=== PATIENT | female | born 1945 | race Caucasian/White ===

== ENCOUNTER 2017-07-08 18:58 | Inpatient (IN) | payer OTHER ==
[2017-07-08] MEDS: SOD CHLORIDE 0.9% 500 ML IV (23:37)
[2017-07-08 23:49] LABS: ABNORMAL IP MESSAGE 1; HEMATOCRIT 42.5 % (37.0-47.0); MEAN CORPUSCULAR HEMOGLOBIN 28.5 pg (29.0-33.0); MEAN CORPUSCULAR HGB CONC 32.9 g/dl (32.0-37.0); MEAN CORPUSCULAR VOLUME 86.4 fl (82.0-101.0); MEAN PLATELET VOLUME 10.7 fl (7.4-10.4); PLATELET COUNT 234 10^3/UL (140-415); RED BLOOD COUNT 4.92 10^6/ul (4.20-5.40); RED CELL DISTRIBUTION WIDTH 12.6 % (11.5-14.5)
[2017-07-08 23:56] LABS: ADD MAN DIFF? YES; POSITIVE DIFF @See below
[2017-07-09 00:04] LABS: HEMOGLOBIN A1C 5.1 % (0-5.9)
[2017-07-09 00:06] LABS: OPIATES Negative (NEGATIVE)
[2017-07-09 00:08] LABS: ALANINE AMINOTRANSFERASE 38 IU/L (13-69); ALBUMIN 4.8 g/dl (3.3-4.9); ALBUMIN/GLOBULIN RATIO 1.33; ALKALINE PHOSPHATASE 135 IU/L (42-121); ANION GAP 15 (8-16); ASPARTATE AMINO TRANSFERASE 31 IU/L (15-46); BILIRUBIN,INDIRECT 0.3 mg/dl (0-1.1); BILIRUBIN,TOTAL 0.3 mg/dl (0.2-1.3); BLOOD UREA NITROGEN 12 mg/dl (7-20); CALCIUM 9.6 mg/dl (8.4-10.2); CARBON DIOXIDE 25 mmol/L (21-31); CHLORIDE 102 mmol/L (97-110); CHOL/HDL RATIO 4.1 RATIO; CHOLESTEROL 215 mg/dl (100-200); CREATININE 0.59 mg/dl (0.44-1.00); GLUCOSE 126 mg/dl (70-220); HDL CHOLESTEROL 52 mg/dl (33-92); LDL CHOLESTEROL,CALCULATED 135 mg/dl; POTASSIUM 3.8 mmol/L (3.5-5.1); SODIUM 138 mmol/L (135-144); TOTAL PROTEIN 8.4 g/dl (6.1-8.1); TRIGLYCERIDES 138 mg/dl (0-149)
[2017-07-09 00:09] LABS: AMPHETAMINE/METHAMPHETAMINE Negative (NEGATIVE); BARBITURATES Negative (NEGATIVE); BENZODIAZEPINES Negative (NEGATIVE); CANNABINOIDS Negative (NEGATIVE); COCAINE Negative (NEGATIVE)
[2017-07-09 00:10] LABS: INR 1.01; PARTIAL THROMBOPLASTIN TIME 27.5 Sec (25.0-35.0); PROTIME 13.4 Sec (11.9-14.9)
[2017-07-09 00:14] LABS: ADD UMIC YES; UR ASCORBIC ACID NEGATIVE (NEGATIVE); UR BACTERIA FEW /HPF (NONE SEEN); UR BILIRUBIN (Dip) NEGATIVE (NEGATIVE); UR BLOOD (Dip) 1+ mg/dL (NEGATIVE); UR CLARITY SLIGHTLY CLOUDY (CLEAR); UR COLOR YELLOW (YELLOW); UR GLUCOSE (Dip) NEGATIVE (NEGATIVE); UR KETONES (Dip) 1+ mg/dL (NEGATIVE); UR LEUKOCYTE ESTERASE (Dip) 3+ Leu/ul (NEGATIVE); UR MUCUS FEW /HPF (NONE SEEN); UR NITRITE (Dip) NEGATIVE (NEGATIVE); UR RBC 10 /HPF (0-5); UR SPECIFIC GRAVITY (Dip) 1.011 (1.003-1.030); UR SQUAMOUS EPITHELIAL CELL FEW /HPF (FEW); UR TOTAL PROTEIN (Dip) NEGATIVE (NEGATIVE); UR UROBILINOGEN (Dip) NEGATIVE (NEGATIVE); UR WBC 21 /HPF (0-5)
[2017-07-09 00:20] LABS: TROPONIN-I < 0.012 ng/ml (0.00-0.12)
[2017-07-09] MEDS: morphine 2 MG INJ IV ×3 (00:25→17:17)
[2017-07-09] MEDS: ONDANSETRON 4 MG INJ IV ×3 (00:25→06:05)
[2017-07-09] MEDS: morphine 4 MG/ML VIAL IV ×2 (02:29→06:05)
[2017-07-09 04:04] LABS: ANISOCYTOSIS 1+ (0-0); BASOPHIL #M 0.2 10^3/ul (0.0-0.0); BASOPHILS % (M) 1 % (0-2); GIANT THROMBO% (M) 1 % (0-0); LYMPHOCYTES #M 11.5 10^3/ul (0.8-2.9); LYMPHOCYTES % (M) 55 % (15-51); METAMYELOCYTES #M 0.2 10^3/ul (0.0-0.0); METAMYELOCYTES %M 1 % (0-0); MICROCYTOSIS 1+ (0-0); MONOCYTE #M 0.6 10^3/ul (0.3-0.9); MONOCYTES % (M) 3 % (0-11); MYELOCYTES #M 0.4 10^3/ul (0.0-0.0); MYELOCYTES % (M) 2 % (0-0); PLATELET ESTIMATE NORMAL; REACTIVE LYMPHOCYTES #M 0.4 10^3/ul (0.0-0.0); REACTIVE LYMPHOCYTES% (M) 2 % (0-0); SEGMENTED NEUTROPHILS (M) % 35 % (39-77); SMUDGE%M 28 % (0-0)
[2017-07-09] MEDS: VANCOMYCIN 1 GM (PMX) 250 ML IVPB (04:47)
[2017-07-09] MEDS: SODIUM CHLORIDE 0.9% 1L BAG IV* (04:47)
[2017-07-09] MEDS: CEFEPIME 2GM/50 ML (PMX) 50 ML IVPB (04:48)
[2017-07-09] MEDS ORDERED: ONDANSETRON 4 MG INJ IV (06:30)
[2017-07-09] MEDS ORDERED: NACL 0.9% 3 ML SYG IV (06:30)
[2017-07-09] MEDS ORDERED: ALBUTEROL/IPRATROPIUM (NEB) 3 ML AMP HHN (06:30)
[2017-07-09] MEDS: ACETAMINOPHEN 325 MG TAB PO (07:57)
[2017-07-09] MEDS ORDERED: VANCOMYCIN IV PER PHARMACY XX (09:00)
[2017-07-09] MEDS ORDERED: hydrALAzine 20 MG INJ IV (09:30)
[2017-07-09] MEDS: CEFEPIME 1GM/50 ML (PMX) 50 ML IVPB ×2 (09:46→20:32)
[2017-07-09] MEDS: SOD CHLORIDE 0.9% 1,000 ML IV (09:47)
[2017-07-09] MEDS: ENOXAPARIN 40 MG/0.4 ML SYG SC (09:47)
[2017-07-09 11:35] LABS: LACTIC ACID 0.8 mmol/L (0.5-2.0)
[2017-07-09 15:11] LABS: URIC ACID 2.2 mg/dl (3.1-7.9)
[2017-07-09] MEDS: VANCOMYCIN 500MG/NS (PMX) 100 ML IVPB (17:09)
[2017-07-09] MEDS: GABAPENTIN 100 MG CAP PO (20:32)
[2017-07-10] MEDS: morphine 2 MG INJ IV ×2 (00:57→06:38)
[2017-07-10] MEDS ORDERED: VITAMIN A & D 5 GM OINT PACKET TOP (02:30)
[2017-07-10] MEDS: VANCOMYCIN 500MG/NS (PMX) 100 ML IVPB (05:08)
[2017-07-10] MEDS: SOD CHLORIDE 0.9% 1,000 ML IV ×3 (05:08→21:09)
[2017-07-10 06:04] LABS: ABNORMAL IP MESSAGE 1; HEMATOCRIT 38.6 % (37.0-47.0); HEMOGLOBIN 12.7 g/dl (12.0-16.0); MEAN CORPUSCULAR HEMOGLOBIN 28.7 pg (29.0-33.0); MEAN CORPUSCULAR HGB CONC 32.9 g/dl (32.0-37.0); MEAN CORPUSCULAR VOLUME 87.1 fl (82.0-101.0); MEAN PLATELET VOLUME 10.7 fl (7.4-10.4); PLATELET COUNT 203 10^3/UL (140-415); RED BLOOD COUNT 4.43 10^6/ul (4.20-5.40); RED CELL DISTRIBUTION WIDTH 12.5 % (11.5-14.5)
[2017-07-10 06:04] LABS: WHITE BLOOD COUNT 16.5 10^3/ul (4.8-10.8)
[2017-07-10 06:07] LABS: ADD MAN DIFF? YES; POSITIVE DIFF @See below
[2017-07-10 06:33] LABS: ALANINE AMINOTRANSFERASE 122 IU/L (13-69); ALBUMIN 3.9 g/dl (3.3-4.9); ALBUMIN/GLOBULIN RATIO 1.25; ALKALINE PHOSPHATASE 157 IU/L (42-121); ANION GAP 15 (8-16); ASPARTATE AMINO TRANSFERASE 101 IU/L (15-46); BILIRUBIN,INDIRECT 0.4 mg/dl (0-1.1); BILIRUBIN,TOTAL 0.4 mg/dl (0.2-1.3); BLOOD UREA NITROGEN 10 mg/dl (7-20); CARBON DIOXIDE 29 mmol/L (21-31); CHLORIDE 103 mmol/L (97-110); CREATININE 0.52 mg/dl (0.44-1.00); GLUCOSE 89 mg/dl (70-220); PHOSPHORUS 3.6 mg/dl (2.5-4.9); POTASSIUM 3.5 mmol/L (3.5-5.1); SODIUM 143 mmol/L (135-144)
[2017-07-10 07:59] LABS: ANISOCYTOSIS 2+ (0-0); LYMPHOCYTES #M 10.7 10^3/ul (0.8-2.9); LYMPHOCYTES % (M) 65 % (15-51); METAMYELOCYTES #M 0.1 10^3/ul (0.0-0.0); METAMYELOCYTES %M 1 % (0-0); MICROCYTOSIS 2+ (0-0); MONOCYTE #M 0.3 10^3/ul (0.3-0.9); MONOCYTES % (M) 2 % (0-11); MYELOCYTES #M 0.1 10^3/ul (0.0-0.0); MYELOCYTES % (M) 1 % (0-0); PLATELET ESTIMATE NORMAL; POLYCHROMASIA 1+ (0-0); SEGMENTED NEUTROPHILS (M) % 31 % (39-77); SMUDGE%M 5 % (0-0)
[2017-07-10] MEDS: CEFEPIME 1GM/50 ML (PMX) 50 ML IVPB ×2 (08:53→21:08)
[2017-07-10] MEDS: GABAPENTIN 100 MG CAP PO ×3 (08:54→21:08)
[2017-07-10] MEDS: ENOXAPARIN 40 MG/0.4 ML SYG SC (09:00)
[2017-07-10] MEDS: INFLUENZA VIRUS VACCINE 0.5 ML SYG IM* (12:42)
[2017-07-10] MEDS ORDERED: morphine LIQ (10 MG/5 ML) CUP PO (17:30)
[2017-07-10] MEDS: ACETAMINOPHEN 325 MG TAB PO (18:46)
[2017-07-11] MEDS: ACETAMINOPHEN 325 MG TAB PO ×3 (00:28→20:03)
[2017-07-11 06:14] LABS: ABNORMAL IP MESSAGE 1; HEMATOCRIT 36.9 % (37.0-47.0); HEMOGLOBIN 12.2 g/dl (12.0-16.0); MEAN CORPUSCULAR HEMOGLOBIN 28.6 pg (29.0-33.0); MEAN CORPUSCULAR HGB CONC 33.1 g/dl (32.0-37.0); MEAN CORPUSCULAR VOLUME 86.6 fl (82.0-101.0); MEAN PLATELET VOLUME 10.4 fl (7.4-10.4); PLATELET COUNT 188 10^3/UL (140-415); RED BLOOD COUNT 4.26 10^6/ul (4.20-5.40); RED CELL DISTRIBUTION WIDTH 12.8 % (11.5-14.5)
[2017-07-11 06:14] LABS: WHITE BLOOD COUNT 14.4 10^3/ul (4.8-10.8)
[2017-07-11 06:18] LABS: POSITIVE DIFF @See below
[2017-07-11 06:19] LABS: ADD MAN DIFF? YES
[2017-07-11 06:55] LABS: ALANINE AMINOTRANSFERASE 86 IU/L (13-69); ALBUMIN 3.5 g/dl (3.3-4.9); ALBUMIN/GLOBULIN RATIO 1.29; ALKALINE PHOSPHATASE 147 IU/L (42-121); ANION GAP 14 (8-16); ASPARTATE AMINO TRANSFERASE 52 IU/L (15-46); BILIRUBIN,INDIRECT 0.2 mg/dl (0-1.1); BILIRUBIN,TOTAL 0.2 mg/dl (0.2-1.3); BLOOD UREA NITROGEN 11 mg/dl (7-20); CALCIUM 8.9 mg/dl (8.4-10.2); CARBON DIOXIDE 29 mmol/L (21-31); CHLORIDE 107 mmol/L (97-110); CREATININE 0.53 mg/dl (0.44-1.00); GLUCOSE 79 mg/dl (70-220); POTASSIUM 3.6 mmol/L (3.5-5.1); SODIUM 146 mmol/L (135-144); TOTAL PROTEIN 6.2 g/dl (6.1-8.1)
[2017-07-11 06:59] LABS: HEMOGLOBIN A1C 5.3 % (0-5.9)
[2017-07-11 07:11] LABS: HEPATITIS B SURFACE ANTIGEN NEGATIVE (NEGATIVE)
[2017-07-11 07:23] LABS: ANISOCYTOSIS 2+ (0-0); BASOPHIL #M 0.1 10^3/ul (0.0-0.0); BASOPHILS % (M) 1 % (0-2); EOSINOPHILS % (M) 2 % (0-7); LYMPHOCYTES #M 11.6 10^3/ul (0.8-2.9); LYMPHOCYTES % (M) 81 % (15-51); MICROCYTOSIS 2+ (0-0); PLATELET ESTIMATE NORMAL; REACTIVE LYMPHOCYTES #M 0.1 10^3/ul (0.0-0.0); REACTIVE LYMPHOCYTES% (M) 1 % (0-0); SEGMENTED NEUTROPHILS (M) % 15 % (39-77); SMUDGE%M 6 % (0-0)
[2017-07-11 07:29] LABS: HEPATITIS B SURFACE ANTIBODY NEGATIVE (NEGATIVE)
[2017-07-11 07:29] LABS: HEPATITIS B CORE ANTIBODY NEGATIVE (NEGATIVE); HEPATITIS C VIRAL ANTIBODY NEGATIVE (NEGATIVE)
[2017-07-11] MEDS: CEFEPIME 1GM/50 ML (PMX) 50 ML IVPB ×2 (09:49→20:03)
[2017-07-11] MEDS: GABAPENTIN 100 MG CAP PO (09:49)
[2017-07-11] MEDS: ENOXAPARIN 40 MG/0.4 ML SYG SC (09:51)
[2017-07-11] MEDS: SOD CHLORIDE 0.9% 1,000 ML IV (10:28)
[2017-07-11] MEDS: GABAPENTIN 300 MG CAP PO ×2 (14:25→20:03)
[2017-07-12] MEDS: ACETAMINOPHEN 325 MG TAB PO ×3 (07:34→20:00)
[2017-07-12 08:07] LABS: ABNORMAL IP MESSAGE 1; HEMATOCRIT 39.9 % (37.0-47.0); HEMOGLOBIN 13.4 g/dl (12.0-16.0); MEAN CORPUSCULAR HEMOGLOBIN 29.3 pg (29.0-33.0); MEAN CORPUSCULAR HGB CONC 33.6 g/dl (32.0-37.0); MEAN CORPUSCULAR VOLUME 87.3 fl (82.0-101.0); MEAN PLATELET VOLUME 10.9 fl (7.4-10.4); PLATELET COUNT 221 10^3/UL (140-415); RED BLOOD COUNT 4.57 10^6/ul (4.20-5.40); RED CELL DISTRIBUTION WIDTH 12.8 % (11.5-14.5)
[2017-07-12 08:07] LABS: WHITE BLOOD COUNT 15.1 10^3/ul (4.8-10.8)
[2017-07-12 08:15] LABS: POSITIVE DIFF @See below
[2017-07-12 08:16] LABS: ADD MAN DIFF? YES
[2017-07-12] MEDS: GABAPENTIN 300 MG CAP PO ×3 (08:25→21:25)
[2017-07-12 08:26] LABS: ALANINE AMINOTRANSFERASE 89 IU/L (13-69); ALBUMIN 4.3 g/dl (3.3-4.9); ALBUMIN/GLOBULIN RATIO 1.19; ALKALINE PHOSPHATASE 161 IU/L (42-121); ANION GAP 17 (8-16); ASPARTATE AMINO TRANSFERASE 50 IU/L (15-46); BILIRUBIN,INDIRECT 0.1 mg/dl (0-1.1); BILIRUBIN,TOTAL 0.1 mg/dl (0.2-1.3); BLOOD UREA NITROGEN 14 mg/dl (7-20); CALCIUM 9.3 mg/dl (8.4-10.2); CARBON DIOXIDE 30 mmol/L (21-31); CHLORIDE 104 mmol/L (97-110); CREATININE 0.54 mg/dl (0.44-1.00); GLUCOSE 82 mg/dl (70-220); POTASSIUM 3.5 mmol/L (3.5-5.1); SODIUM 147 mmol/L (135-144); TOTAL PROTEIN 7.9 g/dl (6.1-8.1)
[2017-07-12] MEDS: CEFEPIME 1GM/50 ML (PMX) 50 ML IVPB (08:26)
[2017-07-12] MEDS: ENOXAPARIN 40 MG/0.4 ML SYG SC (08:27)
[2017-07-12 09:29] LABS: ANISOCYTOSIS 1+ (0-0); BAND NEUTROPHILS #M 0.3 10^3/ul (0.0-0.6); BAND NEUTROPHILS % (M) 2 % (0-4); BASOPHIL #M 0.3 10^3/ul (0.0-0.0); BASOPHILS % (M) 2 % (0-2); EOSINOPHILS % (M) 1 % (0-7); LYMPHOCYTES #M 11.4 10^3/ul (0.8-2.9); LYMPHOCYTES % (M) 76 % (15-51); MICROCYTOSIS 1+ (0-0); MONOCYTE #M 0.3 10^3/ul (0.3-0.9); MONOCYTES % (M) 2 % (0-11); PLATELET ESTIMATE NORMAL; POIKILOCYTOSIS 1+ (0-0); SEG NEUT #M 2.6 10^3/ul (1.6-7.5); SEGMENTED NEUTROPHILS (M) % 17 % (39-77); SMUDGE%M 9 % (0-0)
[2017-07-12] MEDS: LEVOFLOXACIN 500 MG TAB PO (10:15)
[2017-07-12] MEDS: DICLOFENAC SODIUM 1% GEL 100 GM TUBE TP ×2 (18:30→21:00)
[2017-07-12] MEDS: FAMOTIDINE 20 MG TAB PO (21:25)
[2017-07-12] MEDS: NAPROXEN 250 MG TAB PO (21:25)
[2017-07-13] MEDS: ACETAMINOPHEN 325 MG TAB PO (03:44)
[2017-07-13] MEDS: LEVOFLOXACIN 500 MG TAB PO (05:53)
[2017-07-13 06:11] LABS: ADD MAN DIFF? NO
[2017-07-13 06:53] LABS: ANION GAP 15 (8-16); BLOOD UREA NITROGEN 13 mg/dl (7-20); CALCIUM 9.3 mg/dl (8.4-10.2); CARBON DIOXIDE 29 mmol/L (21-31); CHLORIDE 105 mmol/L (97-110); CREATININE 0.53 mg/dl (0.44-1.00); GLUCOSE 91 mg/dl (70-220); MAGNESIUM 2.2 mg/dl (1.7-2.5); PHOSPHORUS 5.1 mg/dl (2.5-4.9); POTASSIUM 3.8 mmol/L (3.5-5.1); SODIUM 145 mmol/L (135-144)
[2017-07-13 07:13] LABS: WHITE BLOOD COUNT 14.5 10^3/ul (4.8-10.8)
[2017-07-13 07:13] LABS: ABNORMAL IP MESSAGE 1; BASOPHIL # 0.1 10^3/ul (0.0-0.1); BASOPHILS % 0.5 % (0.0-2.0); EOSINOPHILS # 0.2 10^3/ul (0.0-0.5); EOSINOPHILS % 1.1 % (0.0-7.0); HEMATOCRIT 39.2 % (37.0-47.0); HEMOGLOBIN 13.2 g/dl (12.0-16.0); LYMPHOCYTES # 10.1 10^3/ul (0.8-2.9); MEAN CORPUSCULAR HEMOGLOBIN 29.2 pg (29.0-33.0); MEAN CORPUSCULAR HGB CONC 33.7 g/dl (32.0-37.0); MEAN CORPUSCULAR VOLUME 86.7 fl (82.0-101.0); MEAN PLATELET VOLUME 10.7 fl (7.4-10.4); MONOCYTE # 0.6 10^3/ul (0.3-0.9); MONOCYTES % 4.3 % (0.0-11.0); NEUTROPHIL # 3.5 10^3/ul (1.6-7.5); PLATELET COUNT 224 10^3/UL (140-415); RED BLOOD COUNT 4.52 10^6/ul (4.20-5.40)
[2017-07-13 07:14] LABS: POSITIVE DIFF @See below
[2017-07-13] MEDS: DICLOFENAC SODIUM 1% GEL 100 GM TUBE TP ×2 (09:00→12:31)
[2017-07-13] MEDS: NAPROXEN 250 MG TAB PO (09:32)
[2017-07-13] MEDS: FAMOTIDINE 20 MG TAB PO (09:32)
[2017-07-13] MEDS: GABAPENTIN 300 MG CAP PO ×2 (09:32→12:30)
[2017-07-13] MEDS: ENOXAPARIN 40 MG/0.4 ML SYG SC (09:38)
== END 2017-07-13 15:05 | disposition home or self-care (01) | DRG 603 ==
LOC: E/R 18:58 → MS2 07-09 03:36
DX: L03.311 Cellulitis of abdominal wall (principal); N39.0 Urinary tract infection, site not specified; R20.0 Anesthesia of skin; M79.602 Pain in left arm; M54.2 Cervicalgia; K76.0 Fatty (change of) liver, not elsewhere classified; M25.511 Pain in right shoulder; B96.5 Pseudomonas (aeruginosa) (mallei) (pseudomallei) as the cause of diseases classified elsewhere; B96.89 Other specified bacterial agents as the cause of diseases classified elsewhere; Z98.890 Other specified postprocedural states
CPT/HCPCS: 36415; 70450; 71045; 72125; 72128; 72156; 73030-RT; 73200; 74176; 76705; 80048; 80053; 80061; 80307; 81001; 83036; 83605; 83735; 84100; 84484; 84560; 85025; 85610; 85730; 86704; 86706; 86803; 87040; 87070; 87081; 87086; 87340; 92610; 93005; 96374; 96375; 96376; 99285-25